=== PATIENT | male | born 1990 | race African-American/Black ===

== ENCOUNTER 2022-05-24 23:57 | Emergency (ER) | payer OTHER, MEDICAID ==
[~2022-05-24] VITALS: Ht 182.9 cm; Wt 122.7 kg
[2022-05-25] MEDS ORDERED: TETANUS-DIPTH-ACEL PERTUSSIS 0.5ML SYR Tdap IM ONE (00:15)
[2022-05-25 01:09] VITALS: BP 135/62
== END 2022-05-25 01:11 | disposition home or self-care (01) ==
LOC: ER 23:57
DX: S61.214A Laceration without foreign body of right ring finger without damage to nail, initial encounter (principal); W26.8XXA Contact with other sharp object(s), not elsewhere classified, initial encounter; Y93.89 Activity, other specified; Y92.89 Other specified places as the place of occurrence of the external cause; Y99.0 Civilian activity done for income or pay
CPT/HCPCS: 12001; 73130; 90471; 90715